=== PATIENT | male | born 1950 | race Caucasian/White ===

== ENCOUNTER → 2019-09-09 11:18 | Outpatient (CLI) | payer MEDICARE, SELFPAY ==
[2019-09-09 10:15] VITALS: BMI 26.2
[2019-09-09 11:49] LABS: Absolute Lymphocyte Count 2.32 X10^3/uL (0.83-4.51); Absolute Neutrophil Count 4.2 X10^3/uL (2.0-7.7); Basophil# 0.04 X10^3/uL; Basophil% 0.5 % (0-1); Eosinophil# 0.19 X10^3/uL; Eosinophils% 2.5 % (0-5); Hematocrit 43.7 % (40-54); Hemoglobin 14.7 g/dL (13.0-16.5); Lymphocyte # 2.32 X10^3/ul (4.0); Lymphocyte % 30.9 % (19-41); Mean Corp Hgb Conc 33.6 g/dL (32-36); Mean Corpuscular Hgb 26.5 pg (27.0-32.0); Mean Corpuscular Volume 78.7 fL (80-94); Mean Platelet Vol. 9.5 fl (6.2-12.0); Monocyte# 0.73 X10^3/uL; Monocyte% 9.7 % (0-10); NRBC Flagged by Analyzer 0 % (0-5); Neutrophil % 56.1 % (47-70); Platelet Count 220 K/mm3 (150-450); RBC Distribution Width CV 12.5 % (11.6-14.6); RBC Distribution Width SD 35.8 fl (35.1-43.9); Red Blood Count 5.55 M/mm3 (4.6-6.2); White Blood Count 7.5 K/mm3 (4.4-11.0)
[2019-09-09 12:09] LABS: Anion Gap 5 (5-15); BUN 15 mg/dL (7-18); BUN/Creat Ratio 17.8 RATIO (10-20); Calcium,Total 8.8 mg/dL (8.5-10.1); Chloride 108 mmol/L (98-107); Creatinine, Serum 0.84 mg/dL (0.70-1.30); EST Glomerular Filtration Rate 96 mL/min (>60); Est Glom Filt Rate - Afr Amer 117 mL/min (>60); Glucose 94 mg/dL (74-106); Potassium 3.9 mmol/L (3.5-5.1); Sodium Level 142 mmol/L (136-145); Thyroid Stim Hormone (TSH) 1.39 uIU/mL (0.358-3.74)
== END ==
PROVIDERS: PCP Family Medicine; Referring Provider Internal Medicine Cardiovascular Disease; Visit Provider Internal Medicine Cardiovascular Disease
DX: E78.5 Hyperlipidemia, unspecified (principal); I10 Essential (primary) hypertension
CPT/HCPCS: 36415; 80048; 84443; 85025

== ENCOUNTER → 2019-12-04 | Outpatient (CLI) | payer MEDICARE, SELFPAY ==
[2019-09-09 10:15] VITALS: BMI 26.2
--- NOTE | 2019-12-04 08:02 | ECHOD_ITS ---
Reason For Study: HYPERTENSION Procedure This was a 2D Doppler, Color Flow transthoracic echocardiogram. Exam performed in department. Left Ventricle Normal LV size. The estimated ejection fraction is 60 %. No evidence for diastolic dysfunction. No regional wall motion abnormalities noted. Right Ventricle Normal RV size. Normal systolic function. Atria Normal left atrium. Normal right atrium. Mitral Valve Normal mitral valve. Mild (1+) eccentric mitral valve insufficiency. Tricuspid Valve Normal tricuspid valve. Aortic Valve Trisinus/trileaflet aortic valve. Pulmonic Valve Normal pulmonic valve. Great Vessels Normal aortic root. The pulmonary artery is normal size. Normal inferior vena cava. Pericardium/Pleural No pericardial effusion. MMode/2D Measurements & Calculations LVIDd: 5.2 cm IVSd: 0.81 cm Ao root diam: 3.3 cm LVIDs: 3.0 cm LVPWd: 0.91 cm RVDd: 3.5 cm FS: 42.4 % LAV(MOD-bp): 61.5 ml LA A4 area: 18.3 cm2 LA dimension(2D): 4.2 cm LAV(MOD-bp) Indexed: 35.2 ml/m2 LAV(MOD-sp2): 57.6 ml LAV(MOD-sp4): 57.0 ml RA A4 area: 13.2 cm2 Time Measurements MV dec time: 0.23 sec Doppler Measurements & Calculations MV E max des: 86.5 cm/sec Lat Peak E' Des: 10.6 cm/sec Med Peak E' Des: 7.8 cm/sec MV A max des: 76.3 cm/sec E/E' lat: 8.2 E/E' med: 11.0 MV E/A: 1.1 Ao V2 max: 137.7 cm/sec LV V1 max: 103.2 cm/sec PA V2 max: 94.4 cm/sec Ao max P.6 mmHg LV V1 max P.3 mmHg TR max des: 243.5 cm/sec TR max P.7 mmHg Interpretation Summary Normal LV size. The estimated ejection fraction is 60 %. Mild (1+) eccentric mitral valve insufficiency. No evidence for diastolic dysfunction. Ordering Physician: Roverto Albert Referring Physician: Salina Mcdonough Performed By: Candy Gresham, JOHANN, RVT
== END | disposition home or self-care (01) ==
PROVIDERS: PCP Family Medicine; Referring Provider Internal Medicine Cardiovascular Disease; Visit Provider Internal Medicine Cardiovascular Disease
DX: R94.31 Abnormal electrocardiogram [ECG] [EKG] (principal); I10 Essential (primary) hypertension
CPT/HCPCS: 93306